=== PATIENT | female | born 1970 | race Caucasian/White ===

== ENCOUNTER 2017-01-23 10:38 | Emergency (ER) | payer BC ==
[~2017-01-23] VITALS: Ht 165.1 cm; Wt 97.5 kg
--- NOTE | 2017-01-23 10:45 | NUR ---
Pt c/o chest pain, radiates to bilateral arm; no SOB; + pressure in her jaw with numbness of her fingers; 7/10 severity, lasted for 4 minutes;+vomit. Placed on monitor. VSS. Awating md order
[2017-01-23] MEDS ORDERED: ALBU8.5H2 IH (10:52)
--- NOTE | 2017-01-23 11:00 | NUR ---
ARABIC TRANSLATOR AT BEDSIDE BLOOD SAMPLE COLLCETED
[2017-01-23 11:12] LABS: BASOPHILS # (AUTO) 0.1 /CMM (0.0-0.2); BASOPHILS % (AUTO) 0.8 % (0.0-2.0); EOSINOPHILS # (AUTO) 0.3 /CMM (0.0-0.7); EOSINOPHILS % (AUTO) 4.2 % (0.0-6.0); HEMATOCRIT 34 % (33-45); LYMPHOCYTES # (AUTO) 2.1 /CMM (0.8-4.8); LYMPHOCYTES % (AUTO) 31.2 % (20.0-44.0); MEAN CORPUSCULAR HEMOGLOBIN 23 PG (26.0-33.0); MEAN CORPUSCULAR HGB CONC 33 g/dl (31.0-36.0); MEAN CORPUSCULAR VOLUME 72 fL (82-100); MONOCYTES # (AUTO) 0.5 /CMM (0.1-1.30); MONOCYTES % (AUTO) 7.4 % (2.0-12.0); NEUTROPHILS # (AUTO) 3.8 /CMM (1.8-8.9); NEUTROPHILS % (AUTO) 56.4 % (43.0-81.0); PLATELET COUNT (AUTO) 349 /CMM (150-450); RDW COEFFICIENT OF VARIATION 15.1 (11.5-15.0); RED BLOOD CELL COUNT(AUTO) 4.74 MIL/uL (4.0-5.2); WHITE BLOOD COUNT (AUTO) 6.8 K/uL (4.3-11.0)
--- NOTE | 2017-01-23 11:21 | NUR ---
SEGMENT BLOCK LAYER AT BEDSIDE
[2017-01-23 11:23] LABS: CALCIUM, SERUM 8.8 mg/dL (8.5-10.1); CARBON DIOXIDE 29 mmol/L (21-32); CHLORIDE 105 mmol/L (98-107); CREATININE 0.7 mg/dL (0.6-1.3); GFR 90 mL/min (>60); GLUCOSE 103 mg/dL (74-106); POTASSIUM 4.3 mmol/L (3.5-5.1); SODIUM SERUM 139 mmol/L (136-145); UREA NITROGEN, BLOOD 12 mg/dL (7-18)
[2017-01-23 11:29] LABS: ALANINE AMINOTRANSFERASE 43 U/L (12-78); ALBUMIN 3.7 g/dL (3.4-5.0); ALKALINE PHOSPHATASE 139 U/L (46-116); ASPARTATE AMINOTRANSFERASE 29 U/L (15-37); BILIRUBIN,DIRECT 0.1 mg/dL (0.0-0.2); BILIRUBIN,TOTAL 0.2 mg/dL (0.2-1.0); TOTAL PROTEIN, SERUM 7.6 g/dL (6.4-8.2)
[2017-01-23 11:31] LABS: TROPONIN I < 0.017 ng/mL (0.00-0.056)
[2017-01-23 11:46] VITALS: BP 154/97
--- NOTE | 2017-01-23 11:46 | NUR ---
Patient discharged to home in stable condition. Written and verbal after care instructions given. Patient verbalizes understanding of instruction.
== END 2017-01-23 11:47 | disposition home or self-care (01) ==
LOC: ER 10:40
DX: R07.89 Other chest pain (principal); J45.909 Unspecified asthma, uncomplicated
CPT/HCPCS: 36415; 71010; 80048; 80076; 84484; 85025; 93005; 99285; A4606; Z7610

== ENCOUNTER 2017-05-19 09:33 | Emergency (ER) | payer BC ==
[~2017-05-19] VITALS: Ht 165.1 cm; Wt 99.8 kg
[~2017-05-19 09:33] MED LIST: ALBU8.5H2 IH
[2017-05-19 09:37] VITALS: BP 144/83
== END 2017-05-19 10:28 | disposition home or self-care (01) ==
LOC: ER 09:34
DX: S09.93XA Unspecified injury of face, initial encounter (principal); J45.909 Unspecified asthma, uncomplicated; Z90.49 Acquired absence of other specified parts of digestive tract; X19.XXXA Contact with other heat and hot substances, initial encounter; Y93.89 Activity, other specified; Y92.89 Other specified places as the place of occurrence of the external cause; Y99.9 Unspecified external cause status
CPT/HCPCS: 99281; A4606; Z7610; Z7502

== ENCOUNTER 2018-01-02 08:47 | Emergency (ER) | payer BC ==
[~2018-01-02] VITALS: Ht 165.1 cm; Wt 99.8 kg
[2018-01-02 08:56] VITALS: BP 140/94
== END 2018-01-02 10:37 | disposition home or self-care (01) ==
LOC: ER 08:48
DX: S69.82XA Other specified injuries of left wrist, hand and finger(s), initial encounter (principal); J45.909 Unspecified asthma, uncomplicated; X58.XXXA Exposure to other specified factors, initial encounter; Y93.89 Activity, other specified; Y92.89 Other specified places as the place of occurrence of the external cause; Y99.8 Other external cause status
CPT/HCPCS: 73130; 99284; A4606; Z7610

== ENCOUNTER 2021-12-10 07:45 | Emergency (ER) | payer BC ==
[~2021-12-10] VITALS: Ht 167.6 cm; Wt 95.7 kg
--- NOTE | 2021-12-10 08:05 | NUR ---
B DAUGHTER C/O LIGHTHEADED AND DIZZINESS STARTED 0630H WHILE WALKING DOG. AMBULATORY NOT IN DISTRESS. AAOX4.
--- NOTE | 2021-12-10 08:15 | NUR ---
URINE SAMPLE FOR URINALYSIS AND TEST SENT TO LAB.
--- NOTE | 2021-12-10 08:27 | NUR ---
JUKE BOX SERVICER AT BEDSIDE FOR BLOOD DRAW
[2021-12-10 08:40] LABS: BASOPHILS # (AUTO) 0.1 K/uL (0.0-0.2); BASOPHILS % (AUTO) 1.9 % (0.0-2.0); EOSINOPHILS % (AUTO) 4.3 % (0.0-6.0); HEMATOCRIT 38 % (33-45); HEMOGLOBIN 11.4 g/dL (11.5-14.8); LYMPHOCYTES # (AUTO) 1.9 K/uL (0.8-4.8); LYMPHOCYTES % (AUTO) 34.1 % (20.0-44.0); MEAN CORPUSCULAR HGB CONC 31 g/dl (31.0-36.0); MEAN CORPUSCULAR VOLUME 71 fL (82-100); MONOCYTES # (AUTO) 0.5 K/uL (0.1-1.30); MONOCYTES % (AUTO) 9.1 % (2.0-12.0); NEUTROPHILS # (AUTO) 2.9 K/uL (1.8-8.9); NEUTROPHILS % (AUTO) 50.6 % (43.0-81.0); PLATELET COUNT (AUTO) 317 K/uL (150-450); RED BLOOD CELL COUNT(AUTO) 5.29 MIL/uL (4.0-5.2); WHITE BLOOD COUNT (AUTO) 5.7 K/uL (4.3-11.0)
[2021-12-10 08:47] LABS: CARBON DIOXIDE 29 mmol/L (21-32); CHLORIDE 108 mmol/L (98-107); CREATININE 0.7 mg/dL (0.6-1.3); GLUCOSE 90 mg/dL (74-106); SODIUM SERUM 142 mmol/L (136-145); UREA NITROGEN, BLOOD 15 mg/dL (7-18)
[2021-12-10 08:56] LABS: BILIRUBIN,URINE NEGATIVE (NEGATIVE); COLOR,URINE YELLOW (YELLOW); LEUKOCYTE ESTERASE ,URINE NEGATIVE (NEGATIVE); NITRITE, URINE NEGATIVE (NEGATIVE); PH,URINE 5.5 (5.0-8.0); PROTEIN,URINE NEGATIVE (NEGATIVE); UGLUCOSE NEGATIVE (NEGATIVE); UROBILINOGEN,URINE 0.2 EU/dL (0.2)
[2021-12-10] MEDS ORDERED: IV NS 0.9% 1,000 ML IV ONE (09:00)
--- NOTE | 2021-12-10 11:32 | NUR ---
IV removed. Catheter intact and site benign. Pressure and 4x4 applied to site. No bleeding noted.Patient discharged to home in stable condition. Written and verbal after care instructions given. Patient verbalizes understanding of instruction.
[2021-12-10 11:33] VITALS: BP 142/75
== END 2021-12-10 11:37 | disposition home or self-care (01) ==
LOC: ER 07:46
DX: R42 Dizziness and giddiness (principal); J45.909 Unspecified asthma, uncomplicated; Z90.49 Acquired absence of other specified parts of digestive tract
CPT/HCPCS: 36415; 71045; 80048; 81003; 84484; 84703; 85025; 93005; 96360; 99285; J7030

== ENCOUNTER 2022-05-22 10:58 | Emergency (ER) | payer BC ==
[~2022-05-22] VITALS: Ht 165.1 cm; Wt 93.0 kg
--- NOTE | 2022-05-22 11:09 | NUR ---
DR GERMAN AT THE BEDSIDE
--- NOTE | 2022-05-22 11:10 | NUR ---
BIBS C/O RIGHT ANKLE PAIN 3/10 AND SWELLING X2DAYS S/P RUNNING UPSTAIRS. NO APPARENT DEFORMITY NOTED. WILL CONTINUE TO MONITOR THE PATIENT.
--- NOTE | 2022-05-22 11:20 | NUR ---
ACCOUNTING MANAGER CPA AT BEDSIDE FOR XRAY
[2022-05-22 11:37] VITALS: BP 141/78
--- NOTE | 2022-05-22 11:37 | NUR ---
Patient discharged to home in stable condition. Written and verbal after care instructions given. Patient verbalizes understanding of instruction.
== END 2022-05-22 11:37 | disposition home or self-care (01) ==
LOC: ER 11:01
DX: M79.671 Pain in right foot (principal); J45.909 Unspecified asthma, uncomplicated
CPT/HCPCS: 73630-TC

== ENCOUNTER 2022-12-08 13:58 | Emergency (ER) | payer BC ==
[~2022-12-08] VITALS: Ht 165.1 cm; Wt 92.1 kg
[2022-12-08] MEDS ORDERED: OXYM15MI4 NS (15:21)
[2022-12-08 15:26] VITALS: BP 148/90
== END 2022-12-08 15:26 | disposition home or self-care (01) ==
LOC: ER 14:14
DX: J32.9 Chronic sinusitis, unspecified (principal); J45.909 Unspecified asthma, uncomplicated; Z98.890 Other specified postprocedural states

== ENCOUNTER 2023-01-10 10:24 | Emergency (ER) | payer BC ==
[~2023-01-10] VITALS: Ht 165.1 cm; Wt 92.1 kg
[~2023-01-10 10:24] MED LIST changes: -ALBU8.5H2 IH; +OXYM15MI4 NS
[2023-01-10 11:01] LABS: BASOPHILS # (AUTO) 0.1 K/uL (0.0-0.2); BASOPHILS % (AUTO) 2.2 % (0.0-2.0); EOSINOPHILS % (AUTO) 3.9 % (0.0-6.0); HEMATOCRIT 40 % (33-45); HEMOGLOBIN 12.8 g/dL (11.5-14.8); LYMPHOCYTES # (AUTO) 2.4 K/uL (0.8-4.8); LYMPHOCYTES % (AUTO) 40.4 % (20.0-44.0); MEAN CORPUSCULAR HGB CONC 32 g/dl (31.0-36.0); MEAN CORPUSCULAR VOLUME 76 fL (82-100); MONOCYTES # (AUTO) 0.5 K/uL (0.1-1.30); MONOCYTES % (AUTO) 8.3 % (2.0-12.0); NEUTROPHILS # (AUTO) 2.6 K/uL (1.8-8.9); NEUTROPHILS % (AUTO) 45.2 % (43.0-81.0); PLATELET COUNT (AUTO) 269 K/uL (150-450); RED BLOOD CELL COUNT(AUTO) 5.29 MIL/uL (4.0-5.2); WHITE BLOOD COUNT (AUTO) 5.8 K/uL (4.3-11.0)
--- NOTE | 2023-01-10 11:20 | NUR ---
MD AT BEDSIDE FOR TEST RESULT INTERPRETATION.
[2023-01-10 11:24] LABS: CALCIUM, SERUM 9.3 mg/dL (8.5-10.1); CARBON DIOXIDE 27 mmol/L (21-32); CHLORIDE 106 mmol/L (98-107); CREATININE 0.7 mg/dL (0.6-1.3); GLUCOSE 98 mg/dL (74-106); POTASSIUM 4.1 mmol/L (3.5-5.1); SODIUM SERUM 142 mmol/L (136-145); UREA NITROGEN, BLOOD 13 mg/dL (7-18)
--- NOTE | 2023-01-10 14:07 | NUR ---
Patient discharged to home in stable condition. Written and verbal after care instructions given. Patient verbalizes understanding of instruction.
[2023-01-10 16:47] VITALS: BP 142/76
== END 2023-01-10 16:47 | disposition home or self-care (01) ==
LOC: ER 10:25
DX: R07.89 Other chest pain (principal); F41.9 Anxiety disorder, unspecified; J45.909 Unspecified asthma, uncomplicated; Z79.899 Other long term (current) drug therapy
CPT/HCPCS: 36415; 71045-TC; 80048-TC; 84484-TC; 85025-TC

== ENCOUNTER 2023-02-08 22:20 | Emergency (ER) | payer BC ==
[~2023-02-08] VITALS: Ht 165.1 cm; Wt 94.3 kg
--- NOTE | 2023-02-09 00:40 | NUR ---
BIBSELF FROM HOME WITH CC OF FLU LIKE SYMPTOMS FOR SEVERAL DAYS. + ANOSPNIA + SENSE OF TASTE. DID COVID SWAB 02/07/23 (-). PT A/OX4. TOLERATING R/A WELL WITH NO RESP DISTRESS.
[2023-02-09] MEDS ORDERED: BENZONATATE 100 MG CAPSULE PO PRN (01:00)
--- NOTE | 2023-02-09 01:04 | NUR ---
COVID SWAB DONE AND SENT TO LAB
--- NOTE | 2023-02-09 01:11 | NUR ---
PRECISION ASSEMBLER AT PT'S BEDSIDE
[2023-02-09] MEDS ORDERED: BENZ-13 PO (02:24)
[2023-02-09] MEDS ORDERED: DOXY100C2 PO (02:24)
--- NOTE | 2023-02-09 02:39 | NUR ---
Patient discharged to home in stable condition. Written and verbal after care instructions given. Patient verbalizes understanding of instruction.
[2023-02-09 02:50] VITALS: BP 155/88
== END 2023-02-09 02:50 | disposition home or self-care (01) ==
LOC: ER 22:22
DX: J06.9 Acute upper respiratory infection, unspecified (principal); J45.909 Unspecified asthma, uncomplicated; Z20.822 Contact with and (suspected) exposure to COVID-19
CPT/HCPCS: 99284; 71045; 87426; C9803

== ENCOUNTER 2023-04-24 20:03 | Emergency (ER) | payer BC ==
[~2023-04-24] VITALS: Ht 165.1 cm; Wt 92.1 kg
[~2023-04-24 20:03] MED LIST changes: +BENZ-13 PO; +DOXY100C2 PO
[2023-04-24 22:21] LABS: BASOPHILS # (AUTO) 0.1 K/uL (0.0-0.2); BASOPHILS % (AUTO) 1.4 % (0.0-2.0); EOSINOPHILS # (AUTO) 0.1 K/uL (0.0-0.7); EOSINOPHILS % (AUTO) 2.2 % (0.0-6.0); HEMATOCRIT 39 % (33-45); HEMOGLOBIN 12.7 g/dL (11.5-14.8); LYMPHOCYTES % (AUTO) 49.9 % (20.0-44.0); MEAN CORPUSCULAR HEMOGLOBIN 26 PG (26.0-33.0); MEAN CORPUSCULAR HGB CONC 33 g/dl (31.0-36.0); MEAN CORPUSCULAR VOLUME 79 fL (82-100); MONOCYTES # (AUTO) 0.6 K/uL (0.1-1.30); MONOCYTES % (AUTO) 9.5 % (2.0-12.0); NEUTROPHILS # (AUTO) 2.3 K/uL (1.8-8.9); PLATELET COUNT (AUTO) 246 K/uL (150-450); RED BLOOD CELL COUNT(AUTO) 4.92 MIL/uL (4.0-5.2); RED CELL DISTRIBUTION WIDTH 15.8 % (11.5-15.0); WHITE BLOOD COUNT (AUTO) 6.1 K/uL (4.3-11.0)
[2023-04-24 22:33] LABS: CALCIUM, SERUM 9.3 mg/dL (8.5-10.1); CARBON DIOXIDE 26 mmol/L (21-32); CHLORIDE 105 mmol/L (98-107); CREATININE 0.7 mg/dL (0.6-1.3); GLUCOSE 95 mg/dL (74-106); POTASSIUM 3.7 mmol/L (3.5-5.1); SODIUM SERUM 140 mmol/L (136-145); UREA NITROGEN, BLOOD 10 mg/dL (7-18)
[2023-04-24] MEDS ORDERED: IV NS 0.9% 1,000 ML IV ONE (23:00)
[2023-04-24] MEDS ORDERED: ACETAMINOPHEN 325 MG TABLET PO ONE (23:00)
[2023-04-24] MEDS ORDERED: ACETAMINOPHEN 325 MG TABLET ONE (23:05)
[2023-04-24 23:46] VITALS: BP 140/78; TEMP 98.4; O2SAT 99
== END 2023-04-24 23:46 | disposition home or self-care (01) ==
LOC: ER 20:07
DX: R55 Syncope and collapse (principal); R51.9 Headache, unspecified; J45.909 Unspecified asthma, uncomplicated
CPT/HCPCS: 99285; 96360; 70450; 71045; 93005; 85025; 80048; 36415; 84484; J7030

== ENCOUNTER 2023-05-19 17:46 | Emergency (ER) | payer BC ==
[~2023-05-19] VITALS: Ht 165.1 cm; Wt 92.1 kg
[2023-05-19] MEDS ORDERED: ONDANSETRON HCL/PF 4 MG/2 ML VIAL IVP ONE (18:30)
[2023-05-19] MEDS ORDERED: KETOROLAC TROMETHAMINE INJ 30 MG/ML VIAL IV ONE (18:30)
[2023-05-19] MEDS ORDERED: IV NS 0.9% 1,000 ML BAG IV ONE (18:30)
[2023-05-19] MEDS ORDERED: MORPHINE SULFATE INJ 2 MG/ML DISP.SYRIN IV ONE (18:30)
[2023-05-19] MEDS ORDERED: ONDANSETRON HCL/PF 4 MG/2 ML VIAL ONE (18:45)
[2023-05-19] MEDS ORDERED: MORPHINE SULFATE INJ 4 MG/ML DISP.SYRIN ONE (18:46)
[2023-05-19] MEDS ORDERED: KETOROLAC TROMETHAMINE INJ 30 MG/ML VIAL ONE (18:46)
[2023-05-19 19:06] LABS: BASOPHILS # (AUTO) 0.1 K/uL (0.0-0.2); BASOPHILS % (AUTO) 1.5 % (0.0-2.0); EOSINOPHILS # (AUTO) 0.2 K/uL (0.0-0.7); EOSINOPHILS % (AUTO) 2.1 % (0.0-6.0); HEMATOCRIT 42 % (33-45); HEMOGLOBIN 13.1 g/dL (11.5-14.8); LYMPHOCYTES # (AUTO) 2.5 K/uL (0.8-4.8); MEAN CORPUSCULAR HEMOGLOBIN 25 PG (26.0-33.0); MEAN CORPUSCULAR HGB CONC 32 g/dl (31.0-36.0); MEAN CORPUSCULAR VOLUME 80 fL (82-100); MONOCYTES # (AUTO) 0.6 K/uL (0.1-1.30); MONOCYTES % (AUTO) 6.5 % (2.0-12.0); NEUTROPHILS # (AUTO) 5.7 K/uL (1.8-8.9); NEUTROPHILS % (AUTO) 62.9 % (43.0-81.0); PLATELET COUNT (AUTO) 285 K/uL (150-450); RED BLOOD CELL COUNT(AUTO) 5.19 MIL/uL (4.0-5.2); RED CELL DISTRIBUTION WIDTH 15.5 % (11.5-15.0); WHITE BLOOD COUNT (AUTO) 9.1 K/uL (4.3-11.0)
[2023-05-19] MEDS ORDERED: CT SWABBABLE VALVE TRANS SET 1 EA INFUS.SET MC ONE (19:14)
[2023-05-19] MEDS ORDERED: IV NS 0.9% 250 ML IV ONE (19:14)
[2023-05-19] MEDS ORDERED: IOHEXOL-300 100 ML VIAL IV ONE (19:14)
[2023-05-19 19:20] LABS: CALCIUM, SERUM 9.6 mg/dL (8.5-10.1); CREATININE 0.8 mg/dL (0.6-1.3); POTASSIUM 3.4 mmol/L (3.5-5.1)
[2023-05-19 19:23] LABS: BILIRUBIN,DIRECT 0.1 mg/dL (0.0-0.2); BILIRUBIN,TOTAL 0.3 mg/dL (0.2-1.0); TOTAL PROTEIN, SERUM 8.3 g/dL (6.4-8.2)
[2023-05-19 19:40] LABS: APPEARANCE,URINE CLEAR (CLEAR); BILIRUBIN,URINE NEGATIVE (NEGATIVE); BLOOD, URINE NEGATIVE Ery/uL (NEGATIVE); COLOR,URINE YELLOW (YELLOW); KETONES,URINE NEGATIVE (NEGATIVE); LEUKOCYTE ESTERASE ,URINE TRACE (NEGATIVE); NITRITE, URINE NEGATIVE (NEGATIVE); PROTEIN,URINE NEGATIVE (NEGATIVE); UGLUCOSE NEGATIVE (NEGATIVE); UROBILINOGEN,URINE 0.2 EU/dL (0.2)
[2023-05-19 19:41] LABS: INR 0.94 (0.91-1.10); PROTHROMBIN TIME 9.9 SECS (9.2-11.1)
[2023-05-19 19:55] LABS: PREGNANCY TEST URINE QUAL NEGATIVE (NEGATIVE)
[2023-05-19 19:57] LABS: ADD URINE CULTURE NO; BACTERIA,URINE RARE /HPF (None Seen); RBC,URINE 0-2 /HPF (0-2)
[2023-05-19 19:58] LABS: CALCIUM OXALATE CRYSTALS,UR Few /HPF (None Seen); MUCUS,URINE Many /LPF (None Seen)
[2023-05-19] MEDS ORDERED: ONDA4TAB11 PO (20:08)
[2023-05-19] MEDS ORDERED: DICY10CA37 PO (20:08)
[2023-05-19] MEDS ORDERED: KETO10TA2 PO (20:08)
[2023-05-19 20:58] VITALS: BP 140/87; TEMP 98.8; O2SAT 100
== END 2023-05-19 20:59 | disposition home or self-care (01) ==
LOC: ER 17:50
DX: A08.4 Viral intestinal infection, unspecified (principal); J45.909 Unspecified asthma, uncomplicated; Z79.899 Other long term (current) drug therapy; Z98.890 Other specified postprocedural states
CPT/HCPCS: 99285; 74177; 96374; 96375; 96361; 85025; 80048; 83605; 83690; 80076; 84703; 81001; 36415; 85730; J2270; J1885; J2405; J7030; J7050; Q9967

== ENCOUNTER 2023-06-09 14:29 | Emergency (ER) | payer BC ==
[~2023-06-09] VITALS: Ht 165.1 cm; Wt 92.1 kg
[~2023-06-09 14:29] MED LIST changes: +DICY10CA37 PO; +KETO10TA2 PO; +ONDA4TAB11 PO
[2023-06-09 15:29] VITALS: TEMP 98.1
[2023-06-09] MEDS ORDERED: IBUPROFEN 400 MG TABLET PO ONE (16:00)
[2023-06-09] MEDS ORDERED: ACETAMINOPHEN ES 500 MG TABLET PO ONE (16:00)
[2023-06-09] MEDS ORDERED: PSEUDOEPHEDRINE HCL 30 MG TABLET PO ONE (16:00)
[2023-06-09] MEDS ORDERED: GUAIFENESIN/D-METHORPHAN HB 5 ML UDC PO ONE (16:00)
[2023-06-09] MEDS ORDERED: GUAIFENESIN/D-METHORPHAN HB 5 ML UDC ONE (16:16)
[2023-06-09] MEDS ORDERED: ACETAMINOPHEN ES 500 MG TABLET ONE (16:16)
[2023-06-09] MEDS ORDERED: PSEUDOEPHEDRINE HCL 30 MG TABLET ONE ×2 (16:17→16:36)
[2023-06-09] MEDS ORDERED: IBUPROFEN 400 MG TABLET ONE (16:17)
[2023-06-09] MEDS ORDERED: PSEU120T83 PO (18:19)
[2023-06-09] MEDS ORDERED: KETO10TA2 PO (18:19)
[2023-06-09] MEDS ORDERED: GUAI1TBM19 PO (18:19)
[2023-06-09 18:26] VITALS: BP 156/84; O2SAT 98
== END 2023-06-09 18:27 | disposition home or self-care (01) ==
LOC: ER 14:36
DX: B34.9 Viral infection, unspecified (principal); J45.909 Unspecified asthma, uncomplicated; Z98.890 Other specified postprocedural states; Z79.899 Other long term (current) drug therapy; Z20.822 Contact with and (suspected) exposure to COVID-19
CPT/HCPCS: 99284; 87426; 87804 ×2; C9803